=== PATIENT | male | born 1985 ===

== ENCOUNTER 2017-10-19 02:30 | Emergency (ER) | payer SELFPAY ==
[2017-10-19] MEDS ORDERED: Take Home: Naproxen 500 MG Tab, 4 Tab Pack PO ONE (03:59)
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
== END 2017-10-19 04:15 | disposition home or self-care (01) ==
LOC: VM.ED 02:30
DX: S42.032A Displaced fracture of lateral end of left clavicle, initial encounter for closed fracture (principal); Z91.09 Other allergy status, other than to drugs and biological substances; V29.9XXA Motorcycle rider (driver) (passenger) injured in unspecified traffic accident, initial encounter
CPT/HCPCS: 73030-LT; 99283; A9270-GY